=== PATIENT | female | born 1965 | race Caucasian/White ===

== ENCOUNTER → 2018-05-27 | Emergency (ER) | END | disposition home or self-care (01) ==

== ENCOUNTER 2019-04-26 11:37 | Emergency (ER) | payer OTHER ==
[~2019-04-26] VITALS: Ht 160 cm; Wt 87.7 kg
[~2019-04-26 11:37] MED LIST: CEPH-443 PO; MECL12.574 PO; PHEN-537 PO
[2019-04-26 11:46] VITALS: Ht 160 cm; Wt 87.7 kg
[2019-04-26] MEDS ORDERED: ONDANSETRON 4 MG INJ IV STA (13:18)
[2019-04-26] MEDS ORDERED: FAMOTIDINE 20 MG TAB PO STA (13:18)
[2019-04-26] MEDS ORDERED: SOD CHLORIDE 0.9% 1,000 ML IV STA (13:18)
--- NOTE | 2019-04-26 14:08 | ERD ---
ER Documentation Chief Complaint Chief Complaint abdominal pain w/diarrhea & nausea since am HPI 54-year-old previously healthy female presenting with nausea, generalized abdominal pain with associated nonbloody diarrhea that started this morning. She has no associated fever, vomiting, chest pain or shortness of breath. Her pain is mostly in the upper abdomen and radiates all over. The pain is intermittent, cramping, mild. No alleviating or exacerbating factors. ROS All systems reviewed and are negative except as per history of present illness. Medications Home Meds Active Scripts Ondansetron (Ondansetron Odt) 4 Mg Tab.rapdis, 4 MG PO Q6H PRN for NAUSEA AND/OR VOMITING, #10 TAB Prov:TARIK NELSON MD 04/26/19 Discontinued Scripts Phenazopyridine Hcl* (Pyridium*) 100 Mg Tab, 100 MG PO TID PRN for URINARY PAIN, #8 TAB Prov:ARELY ALFRED MD 05/27/18 Cephalexin* (Keflex*) 500 Mg Capsule, 500 MG PO Q6 for 10 Days, CAP Prov:ARELY ALFRED MD 05/27/18 Meclizine Hcl* (Antivert*) 12.5 Mg Tab, 12.5 MG PO Q6H PRN for DIZZINESS, #20 TAB Prov:JAYDA HICKS PA-C 03/19/18 Allergies Allergies: Coded Allergies: No Known Allergy (Unverified , 04/26/19) PMhx/Soc History of Surgery: Yes (Cholecystectomy) Anesthesia Reaction: No Hx Neurological Disorder: No Hx Respiratory Disorders: No Hx Cardiac Disorders: No Hx Psychiatric Problems: No Hx Miscellaneous Medical Probl: No Hx Alcohol Use: No Hx Substance Use: No Hx Tobacco Use: No Smoking Status: Former smoker FmHx Family History: No diabetes Physical Exam Vitals Vital Signs Date Temp Pulse Resp B/P (MAP) Pulse Ox O2 O2 Flow FiO2 Time Delivery Rate 04/26/19 83 16 147/67 96 Room Air 15:30 (93) 04/26/19 97.8 68 18 172/72 97 11:46 (105) Physical Exam Const: No acute distress Head: Atraumatic Eyes: Normal Conjunctiva ENT: Normal External Ears, Nose and Mouth. Neck: Full range of motion. No meningismus. Resp: Clear to auscultation bilaterally Cardio: Regular rate and rhythm, no murmurs Abd: Soft, non tender, non distended. No hepatosplenomegaly. No McBurney's point tenderness. Normal bowel sounds Skin: No petechiae or rashes Back: No midline or flank tenderness Ext: No cyanosis, or edema Neur: Awake and alert Psych: Normal Mood and Affect Result Diagram: 04/26/19 1328 04/26/19 1328 Results 24 hrs Laboratory Tests Test 04/26/19 13:28 White Blood Count 7.6 10^3/ul Red Blood Count 4.37 10^6/ul Hemoglobin 13.0 g/dl Hematocrit 38.9 % Mean Corpuscular Volume 89.0 fl Mean Corpuscular Hemoglobin 29.7 pg Mean Corpuscular Hemoglobin Concent 33.4 g/dl Red Cell Distribution Width 12.6 % Platelet Count 240 10^3/UL Mean Platelet Volume 10.6 fl Immature Granulocytes % 0.100 % Neutrophils % 66.8 % Lymphocytes % 25.0 % Monocytes % 4.4 % Eosinophils % 3.3 % Basophils % 0.4 % Nucleated Red Blood Cells % 0.0 /100WBC Immature Granulocytes # 0.010 10^3/ul Neutrophils # 5.0 10^3/ul Lymphocytes # 1.9 10^3/ul Monocytes # 0.3 10^3/ul Eosinophils # 0.3 10^3/ul Basophils # 0.0 10^3/ul Nucleated Red Blood Cells # 0.0 10^3/ul Sodium Level 139 mmol/L Potassium Level 3.4 mmol/L Chloride Level 101 mmol/L Carbon Dioxide Level 28 mmol/L Anion Gap 10 Blood Urea Nitrogen 13 mg/dl Creatinine 0.56 mg/dl Est Glomerular Filtrat Rate mL/min > 60 mL/min Glucose Level 127 mg/dl Calcium Level 8.6 mg/dl Total Bilirubin 0.5 mg/dl Direct Bilirubin 0.00 mg/dl Indirect Bilirubin 0.5 mg/dl Aspartate Amino Transf (AST/SGOT) 21 IU/L Alanine Aminotransferase (ALT/SGPT) 29 IU/L Alkaline Phosphatase 74 IU/L Total Protein 7.3 g/dl Albumin 3.9 g/dl Globulin 3.40 g/dl Albumin/Globulin Ratio 1.14 Lipase 90 U/L Current Medications Medications Dose Sig/Rick Start Time Status Last (Trade) Ordered Route PRN Stop Time Admin Dose Reason Admin Sodium 1,000 ml @ Q1H STAT 04/26/19 DC 04/26/19 Chloride 1,000 mls/hr IV 13:18 13:29 04/26/19 14:17 Ondansetron 4 mg ONCE STAT 04/26/19 DC 04/26/19 HCl (Zofran IV 13:18 13:29 Inj) 04/26/19 13:19 Famotidine 20 mg ONCE STAT 04/26/19 DC 04/26/19 (Pepcid) PO 13:18 13:29 04/26/19 13:19 Procedures/MDM EMERGENT LABS AND DIAGNOSTIC STUDIES: Lab Results above were reviewed and interpreted by me. CBC: no anemia or evidence of infection CMP: No evidence of clinically significant electrolyte abnormality, acidosis, renal failure, hypoglycemia, liver disease, or biliary obstruction Lipase is within normal limits, no evidence of pancreatitis Initial Nursing notes reviewed. Previous Medical Records requested via the Electronic Health Record. EMERGENCY DEPARTMENT COURSE / MEDICAL DECISION MAKING: Patient has presented with generalized abdominal pain with associated nausea and loose stools. Vitals are unremarkable, she is afebrile. I have a low suspicion for acute surgical abdomen or serious intra-abdominal infection. Suspect viral gastroenteritis. Patient was treated with IV fluids and antiemetics. Labs did not show any significant abnormalities. At this time, she is stable for discharge with supportive outpatient treatment. Return precautions discussed. Patient's blood pressure was elevated (>120/80) but appears stable without evidence of hypertensive emergency or urgency. The patient was counseled about the risks of hypertension and urged to pursue outpatient monitoring and therapy within a week with their primary care physician. Departure Diagnosis: Primary Impression: Abdominal pain Abdominal location: generalized Qualified Codes: R10.84 - Generalized abdominal pain Condition: Stable TARIK NELSON MD Apr 26, 2019 14:08
[2019-04-26] MEDS ORDERED: ONDA4TAB14 PO (14:19)
[2019-04-26 15:30] VITALS: BP 147/67; PULSE 83; RESP 16
== END 2019-04-26 15:30 | disposition home or self-care (01) ==
LOC: E/R 11:37
DX: R10.84 Generalized abdominal pain (principal); R11.0 Nausea; Z87.891 Personal history of nicotine dependence
CPT/HCPCS: 80053; 83690; 85025; 96374; J2405; J7030; Z7502; Z7610